=== PATIENT | female | born 1960 | race Caucasian/White ===

== ENCOUNTER → 2020-06-15 | Day surgery (SDC) | payer OTHER ==
--- NOTE | 2020-06-15 13:57 | MMO ---
FILMS COMPARED: The present examination has been compared to prior imaging studies performed at [facility] on 06/02/2020 and 06/09/2020. MAMMOGRAM FINDINGS: There are scattered fibroglandular densities. IMPRESSION: FINDING IN THE RIGHT BREAST IS CONFIRMED UTILIZING POST PROCEDURE MAMMOGRAM. RIGHT UPPER OUTER MASS. Reported by: LORENZO QUINONES MD Electonically Signed: [id number]
--- NOTE | 2020-06-15 14:51 | ULT ---
Exam: Right breast biopsy with ultrasound guidance HISTORY: Right breast mass in the upper outer quadrant COMPARISON: 06/09/2020 FINDINGS: Successful right breast biopsy with ultrasound guidance. A total of 3 14-gauge core biopsy samples were obtained. Lesional tissue was placed directly in formalin. Patient tolerated the procedure well. No immediate or post procedure complications. Postbiopsy clip was performed in postbi opsy mammogram was performed. Refer to separate mammogram report TECHNIQUE: Consent obtained from a right breast biopsy with ultrasound guidance. The right breast mas s was identified, at the 10:00 position. Right breast was prepped and draped in a sterile fashion. 1% lidocaine, buffered with sodium bicarbonate was used for local anesthesia. Under sonographic lyssa nce, 3 separate 14-gauge core biopsy samples were obtained. Tissue was placed directly in formalin. Postbiopsy clip was placed. Patient tolerated the procedure well. No immediate or postprocedural. Pos t procedure mammogram was IMPRESSION: Successful right breast biopsy with ultrasound guidance. Final pathologic diagnosis ade marie.
== END ==
LOC: BICULT 13:08
PROVIDERS: ATTEND Internal Medicine
PROC: 0H9T3ZX Drainage of Right Breast, Percutaneous Approach, Diagnostic (ICD-10-PCS; principal; 2020-06-15)
DX: C50.411 Malignant neoplasm of upper-outer quadrant of right female breast (principal)
CPT/HCPCS: 19083; 88305

== ENCOUNTER 2020-12-06 10:24 | Outpatient (CLI) | payer OTHER ==
--- NOTE | 2020-12-06 12:17 | BD ---
BONE DENSITOMETRY: INDICATION: Postmenopausal screening. FINDINGS: Density Lumbar Spine: BMD (g/cm2) L1 0.994 T-Score: 0.0 L2 0.935 T-Score: -0.8 L3 0.956 T-Score: -1.2 L4 0.907 T-Score: -1.4 L1-L4 0.947 T-Score: -0.9 Femoral Neck: 0.679 T-Score: -1.5 Total Femur: 1.000 T-Score: 0.5 Impression: 1. Bone mineral density of the lumbar spine within normal range. 2. Bone mineral density of the femoral neck indicates osteopenia. Ten-Year Fracture Risk: Major osteoporotic fracture: 6/8%. Hip fracture: 0.9%. POS: OFF
== END 2020-12-06 10:25 | disposition home or self-care (01) ==
LOC: BICMAMMO 10:24
PROVIDERS: ATTEND Internal Medicine Hematology & Oncology
DX: Z13.820 Encounter for screening for osteoporosis (principal); N95.8 Other specified menopausal and perimenopausal disorders; C50.811 Malignant neoplasm of overlapping sites of right female breast; M85.89 Other specified disorders of bone density and structure, multiple sites
CPT/HCPCS: 77080

== ENCOUNTER 2021-06-22 14:09 | Outpatient (CLI) | payer OTHER | END 2021-06-22 14:10 | disposition home or self-care (01) | LOC: TBSIIMAG 14:09 | PROVIDERS: ATTEND Internal Medicine | DX: M47.816 Spondylosis without myelopathy or radiculopathy, lumbar region (principal); M54.5 Low back pain; G89.29 Other chronic pain; M47.817 Spondylosis without myelopathy or radiculopathy, lumbosacral region | CPT/HCPCS: 72148 ==

== ENCOUNTER 2022-04-30 16:53 | Outpatient (CLI) | payer OTHER | END 2022-04-30 16:54 | disposition home or self-care (01) | LOC: LABBT 16:53 | PROVIDERS: ATTEND Internal Medicine | DX: Z12.11 Encounter for screening for malignant neoplasm of colon (principal) | CPT/HCPCS: 87811 ==

== ENCOUNTER 2022-05-02 07:07 | Day surgery (SDC) | payer OTHER ==
[2022-05-01 09:27] VITALS: BMI 50.5
[2022-05-02] MEDS ORDERED: Lidocaine 1% PF 5 ML VIAL ONE (09:45)
[2022-05-02] MEDS ORDERED: PROPOFOL 200 MG/20 ML VIAL ONE (09:45)
[2022-05-02] MEDS ORDERED: Glycopyrrolate 0.2 MG/ML 5 ML SYRINGE ONE (09:45)
== END 2022-05-02 10:58 | disposition home or self-care (01) ==
LOC: SDC 07:07
PROVIDERS: ATTEND Internal Medicine
PROC: 0DBN8ZZ Excision of Sigmoid Colon, Via Natural or Artificial Opening Endoscopic (ICD-10-PCS; principal; 2022-05-02)
PROC: 0DBL8ZZ Excision of Transverse Colon, Via Natural or Artificial Opening Endoscopic (ICD-10-PCS; principal; 2022-05-02)
PROC: 0DBK8ZZ Excision of Ascending Colon, Via Natural or Artificial Opening Endoscopic (ICD-10-PCS; principal; 2022-05-02)
PROC: 0DBH8ZZ Excision of Cecum, Via Natural or Artificial Opening Endoscopic (ICD-10-PCS; principal; 2022-05-02)
PROC: 0DBM8ZZ Excision of Descending Colon, Via Natural or Artificial Opening Endoscopic (ICD-10-PCS; principal; 2022-05-02)
PROC: 0DBP8ZZ Excision of Rectum, Via Natural or Artificial Opening Endoscopic (ICD-10-PCS; principal; 2022-05-02)
DX: Z12.11 Encounter for screening for malignant neoplasm of colon (principal); D12.2 Benign neoplasm of ascending colon; D12.3 Benign neoplasm of transverse colon; D12.4 Benign neoplasm of descending colon; D12.5 Benign neoplasm of sigmoid colon; K62.1 Rectal polyp; K63.5 Polyp of colon; K57.30 Diverticulosis of large intestine without perforation or abscess without bleeding; K64.4 Residual hemorrhoidal skin tags; K64.8 Other hemorrhoids; E78.00 Pure hypercholesterolemia, unspecified; I10 Essential (primary) hypertension; E66.9 Obesity, unspecified; Z68.43 Body mass index [BMI] 50.0-59.9, adult; Z79.899 Other long term (current) drug therapy
CPT/HCPCS: 88305; C1776; J2704

== ENCOUNTER 2023-08-18 07:59 | Outpatient (CLI) | payer OTHER | END 2023-08-18 08:00 | disposition home or self-care (01) | LOC: NM 07:59 | PROVIDERS: ATTEND Internal Medicine | DX: E05.90 Thyrotoxicosis, unspecified without thyrotoxic crisis or storm (principal); R94.8 Abnormal results of function studies of other organs and systems | CPT/HCPCS: 78014; A9516 ==

== ENCOUNTER 2023-12-04 06:30 | Day surgery (SDC) | payer OTHER ==
[2023-12-02 11:28] VITALS: BMI 46.9
[2023-12-04] MEDS ORDERED: Albuterol HFA (OR) 200 PUFF INH ONE (07:00)
[2023-12-04] MEDS ORDERED: Midazolam HCl 2 mg/2 ml Vial ONE (07:01)
[2023-12-04] MEDS ORDERED: PROPOFOL 60 ML ONE (07:01)
== END 2023-12-04 09:40 | disposition home or self-care (01) ==
LOC: SDC 06:30
PROVIDERS: ATTEND Internal Medicine
PROC: 0DBK8ZZ Excision of Ascending Colon, Via Natural or Artificial Opening Endoscopic (ICD-10-PCS; principal; 2023-12-04)
PROC: 0DBL8ZZ Excision of Transverse Colon, Via Natural or Artificial Opening Endoscopic (ICD-10-PCS; principal; 2023-12-04)
DX: Z12.11 Encounter for screening for malignant neoplasm of colon (principal); D12.3 Benign neoplasm of transverse colon; K63.5 Polyp of colon; K57.30 Diverticulosis of large intestine without perforation or abscess without bleeding; K64.8 Other hemorrhoids; I10 Essential (primary) hypertension; E78.00 Pure hypercholesterolemia, unspecified; E66.9 Obesity, unspecified; Z68.42 Body mass index [BMI] 45.0-49.9, adult; Z86.010 Personal history of colon polyps; Z79.899 Other long term (current) drug therapy
CPT/HCPCS: 88305; J2250; J2704